=== PATIENT | female | born 1965 | race American Indian/Alaskan Native ===

== ENCOUNTER 2017-10-20 18:58 | Emergency (ER) | payer OTHER, BC ==
--- NOTE | 2017-10-20 20:02 | XRay Report ---
FINAL REPORT EXAM: XR SHOULDER 2+V LT HISTORY: left shoulder pain TECHNIQUE: Three views left shoulder PRIORS: None. FINDINGS: No fractures are identified. No dislocation seen. The acromioclavicular joint is intact. Adjacent bony and soft tissue structures are unremarkable. IMPRESSION: Negative shoulder series
--- NOTE | 2017-10-20 20:04 | XRay Report ---
FINAL REPORT EXAM: XR HUMERUS 2+V LT HISTORY: left arm pain TECHNIQUE: Left humerus two views PRIORS: None. FINDINGS: No fracture is identified. The joint spaces are within normal limits. No focal bony lesion identified. No radiopaque foreign body seen. IMPRESSION: Negative no acute abnormality.
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
[2017-10-20 21:11] VITALS: BP 173/97
== END 2017-10-20 21:11 | disposition home or self-care (01) ==
LOC: ED 18:58
DX: S29.012A Strain of muscle and tendon of back wall of thorax, initial encounter (principal); S46.812A Strain of other muscles, fascia and tendons at shoulder and upper arm level, left arm, initial encounter; F17.200 Nicotine dependence, unspecified, uncomplicated; V49.49XA Driver injured in collision with other motor vehicles in traffic accident, initial encounter; Y93.89 Activity, other specified; Y92.89 Other specified places as the place of occurrence of the external cause; Y99.8 Other external cause status
CPT/HCPCS: 99283

== ENCOUNTER 2018-12-02 00:52 | Emergency (ER) | payer BC ==
[2018-12-02 01:34] VITALS: BP 153/65
[2018-12-02 02:02] LABS: Basophils # (Auto) 0.1 K/mm3 (0.0-0.1); Basophils % (Auto) 0.7 % (0.0-1.8); Eosinophils # (Auto) 0.1 K/mm3 (0.0-0.4); Eosinophils % (Auto) 0.6 % (0.0-4.3); Hemoglobin 11.5 gm/dl (10.1-14.3); Lymphocytes # (Auto) 2.7 K/mm3 (1.2-5.4); Lymphocytes % (Auto) 21.4 % (13.4-35.0); Mean Corpuscular HGB Conc 33 % (30-34); Mean Corpuscular Volume 89 fl (79-97); Monocytes # (Auto) 0.8 K/mm3 (0.0-0.8); Platelet Count 291 K/mm3 (140-440); Red Blood Count 3.91 M/mm3 (3.65-5.03); Red Cell Distribution Width 15.2 % (13.2-15.2)
[2018-12-02 02:13] LABS: BUN/Creatinine Ratio 15; Blood Urea Nitrogen 12 mg/dL (7-17); Calcium 8.8 mg/dL (8.4-10.2); Hemolysis Index 5
--- NOTE | 2018-12-02 02:21 | Emergency Department Report ---
- General Chief complaint: Urogenital-Female Stated complaint: NOT LISTED Time Seen by Provider: 12/02/18 01:34 Source: patient Mode of arrival: Ambulatory Limitations: No Limitations - History of Present Illness Initial comments: 53-year-old female presents to ED with complaint of redness, pain to the left breast 2 days. She denies fever, nausea, vomiting. MD complaint: other (left breast pain) -: days(s) (3) Severity: moderate Quality: sharp Consistency: constant Improves with: other (warm compresses) Worsens with: palpation Associated symptoms: denies other symptoms - Related Data Previous Rx's Medication Instructions Recorded Last Taken Type Cyclobenzaprine HCl [Flexeril 5 MG 5 mg PO TID 10 Days #30 tab 10/20/17 Unknown Rx TAB] Ibuprofen 800 mg PO Q6HR 7 Days #28 tablet 10/20/17 Unknown Rx hydroCHLOROthiazide [HCTZ] 25 mg PO QDAY #30 tablet 10/20/17 Unknown Rx Cephalexin [Keflex] 500 mg PO BID 10 Days #20 capsule 12/02/18 Unknown Rx Ibuprofen 800 mg PO BID PRN #20 tablet 12/02/18 Unknown Rx Sulfamethoxazole/Trimethoprim 1 each PO BID 10 Days #20 tablet 12/02/18 Unknown Rx [Bactrim DS TAB] traMADol [Ultram] 50 mg PO Q6HR PRN #7 tablet 12/02/18 Unknown Rx Allergies Allergy/AdvReac Type Severity Reaction Status Date / Time No Known Allergies Allergy Unverified 10/20/17 19:07 Abscess Boil HPI - HPI Chief Complaint: Urogenital-Female Stated Complaint: NOT LISTED Time Seen by Provider: 12/02/18 01:34 Home Medications: Previous Rx's Medication Instructions Recorded Last Taken Type Cyclobenzaprine HCl [Flexeril 5 MG 5 mg PO TID 10 Days #30 tab 10/20/17 Unknown Rx TAB] Ibuprofen 800 mg PO Q6HR 7 Days #28 tablet 10/20/17 Unknown Rx hydroCHLOROthiazide [HCTZ] 25 mg PO QDAY #30 tablet 10/20/17 Unknown Rx Cephalexin [Keflex] 500 mg PO BID 10 Days #20 capsule 12/02/18 Unknown Rx Ibuprofen 800 mg PO BID PRN #20 tablet 12/02/18 Unknown Rx Sulfamethoxazole/Trimethoprim 1 each PO BID 10 Days #20 tablet 12/02/18 Unknown Rx [Bactrim DS TAB] traMADol [Ultram] 50 mg PO Q6HR PRN #7 tablet 12/02/18 Unknown Rx Allergies/Adverse Reactions: Allergies Allergy/AdvReac Type Severity Reaction Status Date / Time No Known Allergies Allergy Unverified 10/20/17 19:07 ED Review of Systems ROS: Stated complaint: NOT LISTED Other details as noted in HPI Comment: All other systems reviewed and negative Constitutional: denies: chills, fever Skin: other (redness to left breast) ED Past Medical Hx - Past Medical History Hx Hypertension: Yes Additional medical history: hypothyroid - Surgical History Past Surgical History?: No - Social History Smoking Status: Current Every Day Smoker Substance Use Type: None - Medications Home Medications: Home Medications Medication Instructions Recorded Confirmed Last Taken Type Cyclobenzaprine HCl [Flexeril 5 MG 5 mg PO TID 10 Days #30 tab 10/20/17 Unknown Rx TAB] Ibuprofen 800 mg PO Q6HR 7 Days #28 tablet 10/20/17 Unknown Rx hydroCHLOROthiazide [HCTZ] 25 mg PO QDAY #30 tablet 10/20/17 Unknown Rx Cephalexin [Keflex] 500 mg PO BID 10 Days #20 capsule 12/02/18 Unknown Rx Ibuprofen 800 mg PO BID PRN #20 tablet 12/02/18 Unknown Rx Sulfamethoxazole/Trimethoprim 1 each PO BID 10 Days #20 tablet 12/02/18 Unknown Rx [Bactrim DS TAB] traMADol [Ultram] 50 mg PO Q6HR PRN #7 tablet 12/02/18 Unknown Rx ED Physical Exam - General Limitations: No Limitations General appearance: alert, in no apparent distress - Head Head exam: Present: atraumatic, normocephalic - Eye Eye exam: Present: normal appearance - ENT ENT exam: Present: mucous membranes moist - Neck Neck exam: Present: normal inspection - Respiratory Respiratory exam: Present: normal lung sounds bilaterally. Absent: respiratory distress - Cardiovascular Cardiovascular Exam: Present: regular rate, normal rhythm - GI/Abdominal GI/Abdominal exam: Present: soft. Absent: distended - Extremities Exam Extremities exam: Present: normal inspection - Neurological Exam Neurological exam: Present: alert, oriented X3 - Psychiatric Psychiatric exam: Present: normal affect, normal mood - Skin Skin exam: Present: other (erythema, tenderness w/ small 1 cm area of fluctuance and induration underneath left breast) ED Course Vital Signs 12/02/18 12/02/18 01:04 01:33 Temperature 99.2 F Pulse Rate 93 H 92 H Respiratory 20 18 Rate Blood Pressure 192/101 Blood Pressure 153/65 [Left] O2 Sat by Pulse 99 100 Oximetry ED Medical Decision Making - Lab Data Result diagrams: 12/02/18 01:45 12/02/18 01:45 - Medical Decision Making Recommended I&D, however patient refused. Patient would rather try a course of antibiotics first. Advised patient to also use warm compresses as well. Prescription for Bactrim and Keflex given. Will discharge at this time. Return precautions given. - Differential Diagnosis cellulitis, abscess Critical care attestation.: If time is entered above; I have spent that time in minutes in the direct care of this critically ill patient, excluding procedure time. ED Disposition Clinical Impression: Cellulitis of left breast Disposition: - TO HOME OR SELFCARE Is pt being admited?: No Condition: Stable Instructions: Cellulitis (ED) Prescriptions: Cephalexin [Keflex] 500 mg PO BID 10 Days #20 capsule Ibuprofen 800 mg PO BID PRN #20 tablet PRN Reason: Pain, Moderate (4-6) Sulfamethoxazole/Trimethoprim [Bactrim DS TAB] 1 each PO BID 10 Days #20 tablet traMADol [Ultram] 50 mg PO Q6HR PRN #7 tablet PRN Reason: Pain Referrals: [facility] [Provider Group] - 3-5 Days Forms: Work/School Release Form(ED) Time of Disposition: 02:21
== END 2018-12-02 03:00 | disposition home or self-care (01) ==
LOC: ED 00:52
DX: N61.0 Mastitis without abscess (principal); I10 Essential (primary) hypertension; F17.200 Nicotine dependence, unspecified, uncomplicated
CPT/HCPCS: 36415; 80048; 85025; 99283

== ENCOUNTER 2020-11-30 05:46 | Day surgery (SDC) | payer BC ==
[2020-11-30] MEDS ORDERED: SODIUM CHLORIDE 0.9% 1000 ML 1,000 ML IV SCH (07:00)
[2020-11-30] MEDS ORDERED: propofoL 200 MG/20 ML VIAL IV ONE (09:20)
[2020-11-30] MEDS ORDERED: LIDOCAINE MPF (2%) 20 MG/1 ML VIAL 5 ML ONE (09:22)
--- NOTE | 2020-11-30 09:39 | Discharge Summary ---
Providers - Providers Date of Admission: 11/30/20 Date of discharge: 11/30/20 Attending physician: NICKY ROJO MD Primary care physician: HAIDER HOOKS MD Hospitalization Reason for admission: pre-op planning EGD for bariatric surgery Condition: Good Procedures: EGD with antral bx Hospital course: Pt presented for a pre-op EGD as part of planning for up coming bariatric surgery. Procedure was uneventful and pt recovered well and was discharged to home. Disposition: DC- TO HOME OR SELFCARE Core Measure Documentation - Palliative Care Palliative Care/ Comfort Measures: Not Applicable - Core Measures Any of the following diagnoses?: none Exam - Physical Exam Narrative exam: unchanged from pre-op - Constitutional Vitals: Temp Pulse Resp BP Pulse Ox 98.0 F 90 19 173/80 98 11/30/20 07:25 11/30/20 07:25 11/30/20 07:25 11/30/20 07:25 11/30/20 07:25 Plan Activity: no restrictions Diet: clear liquids Follow up with: HAIDER HOOKS MD [Primary Care Provider] - 7 Days
--- NOTE | 2020-11-30 09:41 | Operative Report ---
Operative Report Operative Report: DATE: 11/30/20 SURGERY: Upper endoscopy. SURGEON: Oneyda Danielle M.D. PROCEDURE: EGD with biopsy PRE OP DX: morbid obesity, GERD POST OP DX: morbid obesity, GERD TYPE OF ANESTHESIA: MAC. ESTIMATED BLOOD LOSS: None. COMPLICATIONS: None. SPECIMENS REMOVED: antral biopsy FINDINGS: 1. Small hiatal hernia. 2. Otherwise, normal esophagus, stomach and first portion of duodenum. INDICATIONS:INDICATION FOR PROCEDURE: Patient is a 55-year-old female with a long history of morbid obesity. She is planned to have a weight loss procedure and is here for preoperative planning EGD. PROCEDURE DETAILS: After consent was reviewed, patient was taken back to the operating room where patient was placed in the left lateral decubitus position and a bite block was placed in the mouth. After a time-out was called, MAC anesthesia was initiated. I then passed the endoscope into her oropharynx, into her esophagus, visualized the entire esophagus, which was all within normal limits. Z-line was noted to about 38cm from incisors. I then visualized the stomach and the first portion of the duodenum and there were no abnormalities I could clearly visualize. A cold forceps biopsy of the antrum was taken and will be sent to pathology to evaluate for H.pylori. I then retroflexed the scope in the stomach and visualized the hiatus and I could see a small hiatal hernia. It measured about cm difference between the GE junction and diaphragmatic hiatus notch. I then desufflated the stomach and removed the endoscope. Patient tolerated procedure well and was transferred to recovery room in good and stable condition.
[2020-11-30 12:22] VITALS: BP 143/90
--- NOTE | 2020-11-30 12:44 | Anesthesia Consultation ---
<RAISSA BANEGAS - Last Filed: 11/30/20 12:43> Anesthesia Consult and Med Hx Date of service: 11/30/20 - Airway Anesthetic Teeth Evaluation: Good ROM Head & Neck: Adequate Mental/Hyoid Distance: Adequate Mallampati Class: Class II - Pre-Operative Health Status ASA Pre-Surgery Classification: ASA3 Proposed Anesthetic Plan: MAC - Pulmonary Hx Smoking: No Hx Asthma: No Hx Respiratory Symptoms: No SOB: No COPD: No Home Oxygen Therapy: No Hx Pneumonia: No Hx Sleep Apnea: Yes - Cardiovascular System Hx Hypertension: Yes Hx Coronary Artery Disease: No Hx Heart Attack/AMI: No Hx Angina: No Hx Percutaneous Transluminal Coronary Angioplasty (PTCA): No Hx Cardia Arrhythmia: No Hx Pacemaker: No Hx Internal Defibrillator: No Hx Valvular Heart Disease: No Hx Heart Murmur: No Hx Peripheral Vascular Disease: No - Central Nervous System Hx Neuromuscular Disorder: No Hx Seizures: No CVA: No Hx Back Pain: No Hx Psychiatric Problems: No - Gastrointestinal Hx Ulcer: No Hx Gastroesophageal Reflux Disease: Yes - Endocrine Hx Renal Disease: No Hx End Stage Renal Disease: No Hx Cirrhosis: No Hx Liver Disease: No Hx Insulin Dependent Diabetes: No Hx Non-Insulin Dependent Diabetes: No Hx Thyroid Disease: No Hx Hypothyroidism: No Hx Hyperthyroidism: No - Hematic Hx Anemia: No Hx Sickle Cell Disease: No - Other Systems Hx Alcohol Use: No Hx Substance Use: No Hx Cancer: No Hx Obesity: Yes <CARLO SNIDER I - Last Filed: 11/30/20 14:45> Anesthesia Consult and Med Hx - Additional Comments Anesthesia Medical History Comments: This was a late entry; pt was seen preoperatively
--- NOTE | 2020-11-30 12:44 | Anesthesia Day of Surgery ---
Anesthesia Day of Surgery - Day of Surgery Patient Examined: Yes Patient H&P Reviewed: Yes Patient is NPO: Yes
--- NOTE | 2020-11-30 14:44 | Post Anesthesia Evaluation ---
- Post Anesthesia Evaluation Patient Participated: Yes Airway Patent: Yes Stable Respiratory Function: Yes Nausea/Vomiting: No Temp > 96.8F: Yes Pain Manageable: Yes Adequeate Hydration: Yes Anesthesia Complications: No Block Receding Appropriately: Not Applicable Patient on Ventilator: No
== END 2020-11-30 05:47 | disposition home or self-care (01) ==
LOC: GIO 05:46
PROVIDERS: ATTEND Surgery
DX: K21.9 Gastro-esophageal reflux disease without esophagitis (principal); E66.01 Morbid (severe) obesity due to excess calories; K44.9 Diaphragmatic hernia without obstruction or gangrene; K63.89 Other specified diseases of intestine; F17.210 Nicotine dependence, cigarettes, uncomplicated; I10 Essential (primary) hypertension; E03.9 Hypothyroidism, unspecified; G47.30 Sleep apnea, unspecified; Z68.41 Body mass index [BMI] 40.0-44.9, adult; Z79.899 Other long term (current) drug therapy
CPT/HCPCS: 43239; 88305; 88342; J2704; J7030

== ENCOUNTER 2020-12-23 09:36 | Outpatient (CLI) | payer BC ==
--- NOTE | 2020-12-23 11:38 | Fluoroscopy Report ---
UPPER GI HISTORY: GASTROESOPHAGEAL REFLUX DISEASE WITHOUT ESOPHAGITIS. TECHNIQUE: Single and double contrast barium technique utilized to evaluate the esophagus, stomach, and duodenal C-loop. FINDINGS: To begin the exam, swallowing was evaluated in the lateral position under direct fluorosco py. Swallowing was normal. No mucosal irregularity, mass, mass effect, or critical stenosis. There were no abnormal tertiary c ontractions as seen with dysmotility. A small sliding hiatal hernia was witnessed during this exam. N o episodes of gastroesophageal reflux were witnessed. IMPRESSION: Small sliding hiatal hernia. Otherwise, unremarkable exam. Fluoroscopic time: 1.3 minutes Number of fluoroscopic images: 14 Signer Name: Leonidas Roldan Jr, MD Signed: 12/23/2020 11:33 AM Workstation Name: [id number]
== END 2020-12-23 09:37 | disposition home or self-care (01) ==
LOC: FLUORO 09:36
PROVIDERS: ATTEND Surgery
DX: K44.9 Diaphragmatic hernia without obstruction or gangrene (principal); K21.9 Gastro-esophageal reflux disease without esophagitis
CPT/HCPCS: 74246